=== PATIENT | female | born 1980 | race African-American/Black ===

== ENCOUNTER 2024-05-03 07:34 | Outpatient (CLI) | payer BC | END 2024-05-03 07:35 | disposition home or self-care (01) | LOC: BICMAMMO 07:34 | PROVIDERS: ATTEND Obstetrics & Gynecology | DX: Z12.31 Encounter for screening mammogram for malignant neoplasm of breast (principal); Z80.3 Family history of malignant neoplasm of breast; Z85.850 Personal history of malignant neoplasm of thyroid | CPT/HCPCS: 77063; 77067 ==